=== PATIENT | male | born 1985 | race Caucasian/White ===

== ENCOUNTER 2017-02-06 10:53 | Day surgery (SDC) | payer OTHER ==
[2017-02-06 11:28] VITALS: RESP 16
[2017-02-06] MEDS ORDERED: TRIAMCINOLONE ACETONIDE 40 MG/ML SUS ONE (11:44)
[2017-02-06 12:20] VITALS: BP 107/66; PULSE 52; TEMP 97.8; O2SAT 93
== END 2017-02-06 12:34 | disposition home or self-care (01) | DRG 552 ==
LOC: SURG 10:53
PROVIDERS: ATTEND Nurse Anesthetist, Certified Registered
DX: M51.17 Intervertebral disc disorders with radiculopathy, lumbosacral region (principal)
CPT/HCPCS: 76000; J3300

== ENCOUNTER 2017-03-06 13:14 | Day surgery (SDC) | payer OTHER ==
[2017-03-06] MEDS ORDERED: DEXAMETHASONE SOD PHOS PF 10 MG/ML SOL IJ ONE (13:47)
[2017-03-06] MEDS ORDERED: LIDOCAINE HCL 1% MPF SOL ONE (13:55)
[2017-03-06 14:20] VITALS: BP 125/72; PULSE 62; RESP 20; O2SAT 94
== END 2017-03-06 14:50 | disposition home or self-care (01) | DRG 552 ==
LOC: SURG 13:14
PROVIDERS: ATTEND Nurse Anesthetist, Certified Registered
DX: M51.17 Intervertebral disc disorders with radiculopathy, lumbosacral region (principal)
CPT/HCPCS: J1100; J2001